=== PATIENT | female | born 1995 | race Two or more races ===

== ENCOUNTER 2018-01-08 03:24 | Inpatient (IN) | payer SELFPAY ==
[2018-01-08] MEDS ORDERED: IV RINGERS,LACTATED 1000ML 1,000 ML IV (03:56)
[2018-01-08] MEDS ORDERED: TERBUTALINE 1 MG/ML VIAL. SQ (04:00)
[2018-01-08] MEDS ORDERED: 0.9 % SODIUM CHLORIDE 10 ML DISP.SYRIN. IV ×2 (04:00→04:30)
[2018-01-08] MEDS ORDERED: LIDOCAINE 1% PF 30 ML VIAL. INJ (04:00)
[2018-01-08] MEDS ORDERED: IBUPROFEN 800 MG TABLET. PO (04:00)
[2018-01-08 04:05] LABS: ADD MAN DIFF? NO
[2018-01-08 04:09] LABS: BASO % 0 % (0-3); EOS % 1 % (0-3); HEMATOCRIT 37.6 % (36.0-47.0); HEMOGLOBIN 13.1 g/dL (12.0-15.5); LYMPH # 3.8 x10^3/uL (1.0-4.8); LYMPH % 42 % (24-48); MEAN CORPUSCULAR HEMOGLOBIN 30 pg (25-35); MEAN CORPUSCULAR HGB CONC 35 g/dL (31-37); MEAN CORPUSCULAR VOLUME 87 fL (79-100); MONO # 0.5 x10^3/uL (0.0-1.1); MONO % 6 % (0-9); NEUT # 4.6 x10^3uL (1.8-7.7); NEUT % 51 % (31-73); PLATELET COUNT 266 x10^3/uL (140-400); RED BLOOD COUNT 4.33 x10^6/uL (3.50-5.40); RED CELL DISTRIBUTION WIDTH 15.2 % (11.5-14.5)
[2018-01-08] MEDS ORDERED: PHENYLEPH/MINERAL OIL/PETROLAT RECTAL OINTMENT 28GM TUBE. RC (04:30)
[2018-01-08] MEDS ORDERED: oxyCODONE/APAP 5/325 1 TAB TABLET PO (04:30)
[2018-01-08] MEDS ORDERED: OXYTOCIN 30 UNIT/500 ML PREMIX 500 ML IV (04:30)
[2018-01-08] MEDS ORDERED: SIMETHICONE 80 MG TAB.CHEW PO (04:30)
[2018-01-08] MEDS ORDERED: MAG HYDROX/ALUMINUM HYD/SIMETH 30 ML ORAL.SUSP PO (04:30)
[2018-01-08] MEDS ORDERED: ACETAMINOPHEN 325 MG TABLET. PO (04:30)
[2018-01-08] MEDS ORDERED: HYDROCORTISONE 1% TOPICAL OINTMENT 30GM TUBE. TP (04:30)
[2018-01-08] MEDS ORDERED: diphenhydrAMINE HCL 25 MG CAPSULE PO (04:30)
[2018-01-08] MEDS ORDERED: BENZOCAINE 20% TOPICAL AEROSOL SPRAY 57GM CAN. TP (04:30)
[2018-01-08] MEDS ORDERED: ZOLPIDEM 5 MG TABLET. PO (04:30)
[2018-01-08] MEDS ORDERED: MMR per PROTOCOL. MC (04:30)
[2018-01-08] MEDS ORDERED: MAGNESIUM HYDROXIDE 2,400 MG/30 ML ORAL.SUSP. PO (04:30)
[2018-01-08] MEDS: IV RINGERS,LACTATED 1000ML 1,000 ML IV (05:46)
[2018-01-08] MEDS: OXYTOCIN 30 UNIT/500 ML PREMIX 500 ML IV (05:48)
[2018-01-08] MEDS: DOCUSATE SODIUM 100 MG CAPSULE. PO (10:17)
[2018-01-08] MEDS: IBUPROFEN 600 MG TABLET. PO ×2 (10:18→22:07)
[2018-01-09 05:46] LABS: HEMATOCRIT 31.4 % (36.0-47.0)
[2018-01-09 07:38] LABS: RPR Non Reactive (Non Reactive)
[2018-01-09] MEDS ORDERED: FERROUS SULFATE 325 MG TABLET. PO (08:00)
[2018-01-09] MEDS: DOCUSATE SODIUM 100 MG CAPSULE. PO ×2 (09:07→17:41)
[2018-01-09] MEDS: IBUPROFEN 600 MG TABLET. PO ×3 (09:07→17:41)
[2018-01-10] MEDS: IBUPROFEN 600 MG TABLET. PO ×2 (08:43)
[2018-01-10] MEDS: DOCUSATE SODIUM 100 MG CAPSULE. PO (08:43)
[2018-01-10] MEDS: DIPHTH,PERTUSS(ACELL),TET TOX 0.5 ML DISP.SYRIN. VAX IM (08:46)
== END 2018-01-10 13:30 | disposition home or self-care (01) | DRG 775 ==
LOC: 3 SO LND 03:24 → 3 NORTH 09:00
PROC: 10E0XZZ Delivery of Products of Conception, External Approach (ICD-10-PCS; principal; 2018-01-08)
DX: O62.3 Precipitate labor (principal); Z37.0 Single live birth; Z3A.37 37 weeks gestation of pregnancy
CPT/HCPCS: 36415; 85014; 85025; 86593; 86850; 86900; 86901; 90715; 99285-25; G0379; J2590; J7120

== ENCOUNTER 2020-01-12 18:03 | Emergency (ER) | payer SELFPAY ==
[~2020-01-12] VITALS: Ht 152.4 cm; Wt 68.0 kg
[2020-01-12] MEDS ORDERED: IV NORMAL SALINE 1000ML BAG 1,000 ML IV SCH (18:22)
[2020-01-12 18:30] LABS: CLARITY,URINE CLOUDY
[2020-01-12] MEDS ORDERED: ONDANSETRON PF 4 MG/2 ML VIAL. IVP ONE (18:30)
[2020-01-12] MEDS ORDERED: HYDROmorphone 2 MG/ML VIAL IV/SQ PRN (18:30)
[2020-01-12 18:33] LABS: BASO # 0.1 x10^3/uL (0.0-0.2); BASO % 1 % (0-3); EOS # 0.1 x10^3/uL (0.0-0.7); EOS % 1 % (0-3); HEMATOCRIT 39.4 % (36.0-47.0); HEMOGLOBIN 13.8 g/dL (12.0-15.5); LYMPH # 4.1 x10^3/uL (1.0-4.8); LYMPH % 42 % (24-48); MEAN CORPUSCULAR HEMOGLOBIN 31 pg (25-35); MEAN CORPUSCULAR HGB CONC 35 g/dL (31-37); MEAN CORPUSCULAR VOLUME 89 fL (79-100); MONO # 0.5 x10^3/uL (0.0-1.1); MONO % 5 % (0-9); NEUT # 5.2 x10^3/uL (1.8-7.7); NEUT % 52 % (31-73); PLATELET COUNT 262 x10^3/uL (140-400); RED BLOOD COUNT 4.41 x10^6/uL (3.50-5.40); RED CELL DISTRIBUTION WIDTH 13.9 % (11.5-14.5); WHITE BLOOD COUNT 9.9 x10^3/uL (4.0-11.0)
[2020-01-12 18:40] LABS: CALCIUM 8.9 mg/dL (8.5-10.1); CREATININE 0.7 mg/dL (0.6-1.0); GFR 101.1; POTASSIUM 3.6 mmol/L (3.5-5.1)
--- NOTE | 2020-01-12 18:41 | PHYS DOC ---
Past Medical History Past Medical History: No Pertinent History Past Surgical History: No Surgical History Smoking Status: Current Every Day Smoker Alcohol Use: Rarely General Adult EDM: Chief Complaint: FLANK PAIN HPI: HPI: Patient is a 24 year old female who presents with complaint of right flank pain that started earlier this morning. Patient states that she has noticed hematuria when she urinates but has no painful urination. She states that she finished her menstrual cycle about a week ago. Patient does not believe that she is . She denies having had any nausea or vomiting. She also denies any diarrhea. She rates pain as quite severe, similar to labor pains.[] Review of Systems: Review of Systems: Constitutional: Denies fever or chills. [] Respiratory: Denies cough or shortness of breath. [] Cardiovascular: Denies chest pain or edema. [] GI: Complains of right flank pain without vomiting or diarrhea. [] : Denies dysuria. Positive hematuria [] Musculoskeletal: Positive right-sided back pain. [] Neurologic: Denies headache, focal weakness or sensory changes. [] A full 10 point review of systems has been reviewed and is otherwise negative except as noted on history of present illness. Heart Score: Risk Factors: Risk Factors: DM, Current or recent (<one month) smoker, HTN, HLP, family history of CAD, obesity. Risk Scores: Score 0 - 3: 2.5% MACE over next 6 weeks - Discharge Home Score 4 - 6: 20.3% MACE over next 6 weeks - Admit for Clinical Observation Score 7 - 10: 72.7% MACE over next 6 weeks - Early Invasive Strategies Current Medications: Current Medications Medications (Trade) Dose Ordered Sig/Moisés Start Time Stop Time Status Last Admin Dose Admin Hydromorphone HCl (Dilaudid) 0.5 mg PRN Q15MIN PRN 01/12/20 18:30 01/13/20 18:29 Ondansetron HCl (Zofran) 4 mg 1X ONCE 01/12/20 18:30 01/12/20 18:31 DC Sodium Chloride 1,000 ml @ 1,000 mls/hr Q1H 01/12/20 18:22 01/12/20 19:21 Allergies: Allergies: Allergies Coded Allergies Type Severity Reaction Last Updated Verified No Known Drug Allergies 06/26/14 No Physical Exam: PE: Constitutional: Well developed, well nourished, no acute distress, non-toxic appearance. [] HENT: Normocephalic, atraumatic, bilateral external ears normal, oropharynx moist, no oral exudates, nose normal. [] Eyes: PERRLA, EOMI, conjunctiva normal, no discharge. [] Neck: Normal range of motion, no tenderness, supple, no stridor. [] Cardiovascular: Regular rate and rhythm[] Lungs & Thorax: Bilateral breath sounds clear to auscultation [] Abdomen: Bowel sounds normal, soft, no tenderness. [] Skin: Warm, dry, no erythema, no rash. [] Extremities: No tenderness, no cyanosis, no clubbing, ROM intact, no edema. [] Neurologic: Alert and oriented X 3, no focal deficits noted. [] Current Patient Data: Labs: Laboratory Tests Test 01/12/20 18:20 White Blood Count 9.9 x10^3/uL (4.0-11.0) Red Blood Count 4.41 x10^6/uL (3.50-5.40) Hemoglobin 13.8 g/dL (12.0-15.5) Hematocrit 39.4 % (36.0-47.0) Mean Corpuscular Volume 89 fL (79-100) Mean Corpuscular Hemoglobin 31 pg (25-35) Mean Corpuscular Hemoglobin Concent 35 g/dL (31-37) Red Cell Distribution Width 13.9 % (11.5-14.5) Platelet Count 262 x10^3/uL (140-400) Neutrophils (%) (Auto) 52 % (31-73) Lymphocytes (%) (Auto) 42 % (24-48) Monocytes (%) (Auto) 5 % (0-9) Eosinophils (%) (Auto) 1 % (0-3) Basophils (%) (Auto) 1 % (0-3) Neutrophils # (Auto) 5.2 x10^3/uL (1.8-7.7) Lymphocytes # (Auto) 4.1 x10^3/uL (1.0-4.8) Monocytes # (Auto) 0.5 x10^3/uL (0.0-1.1) Eosinophils # (Auto) 0.1 x10^3/uL (0.0-0.7) Basophils # (Auto) 0.1 x10^3/uL (0.0-0.2) Laboratory Tests 01/12/20 18:20 Vital Signs: Vital Signs Date Time Temp Pulse Resp B/P (MAP) Pulse Ox O2 Delivery O2 Flow Rate FiO2 01/12/20 18:18 98.3 95 18 139/89 (106) 100 Room Air 98.3 EKG: EKG: [] Radiology/Procedures: Radiology/Procedures: [] Impression: PROCEDURE: OB <14 WKS W/TV Obstetrical ultrasound including transvaginal scanning 01/12/2020. Reason for exam: Bleeding with . Initial scanning was done transabdominally. This shows a normal size uterus with a fluid-filled structure suggested in the endometrial region. Evaluation was somewhat limited by poor bladder distention. Neither ovary could be seen. There is no apparent adnexal mass or free fluid. Transvaginal scanning was performed to better visualize the intrauterine structures. By transvaginal scanning, the uterus is shown to be retroverted but normal in size and shape. There is a fluid-filled region apparently within the endometrial lining. This is elongated without visible gestational sac. Mean sac diameter is approximately 1.71 cm, corresponding to gestational age of 6 weeks 4 days, although sac configuration is not normal, appearing more elongated than usual. There is heterogeneous echotexture in the adjacent tissues possibly indicating hemorrhage. There is suggestion of a small amount of debris internally. No adnexal mass or free fluid is seen. IMPRESSION: There is a fluid-filled structure likely representing a gestational sac in the uterus, although the shape is not typical, and no internal structures are seen. There is some adjacent hemorrhage. Findings are nonspecific. They could indicate incomplete . There are no findings suggesting ectopic at this time. Follow-up serial serum beta hCG will be useful. Electronically signed by: Santiago Bell Jr., MD (01/12/2020 8:38 PM) [id number] Course & Med Decision Making: Course & Med Decision Making Pertinent Labs and Imaging studies reviewed. (See chart for details) [] Dragon Disclaimer: Dragon Disclaimer: This electronic medical record was generated, in whole or in part, using a voice recognition dictation system. Departure Departure Impression: Primary Impression: Threatened in early Disposition: 01 HOME, SELF-CARE Condition: STABLE Referrals: UNKNOWN PCP NAME (PCP) SANTIAGO HOLLY Jr, MD Patient Instructions: Incomplete Miscarriage, Threatened Miscarriage Scripts Acetaminophen With Codeine (TYLENOL WITH CODEINE #3 TABLET) 1 Each Tablet 1 TAB PO PRN Q6HRS PRN for PAIN, #12 TAB Prov: MARGUERITE ESTRADA Jr. DO 01/12/20 Ondansetron (ONDANSETRON ODT) 4 Mg Tab.rapdis 1 TAB PO PRN Q6-8HRS PRN for NAUSEA, #15 TAB Prov: MARGUERITE ESTRADA Jr. DO 01/12/20 MARGUERITE ESTRADA Jr. DO January 12, 2020 18:41
[2020-01-12 18:43] LABS: COLOR,URINE RED; RBC,URINE TNTC /HPF (0-2)
[2020-01-12 18:44] LABS: PREG TEST PT QUAL POSITIVE (NEG)
[2020-01-12 18:46] LABS: ALBUMIN 4.1 g/dL (3.4-5.0); TOTAL BILIRUBIN 0.5 mg/dL (0.2-1.0); TOTAL PROTEIN 8.3 g/dL (6.4-8.2)
[2020-01-12 18:48] LABS: BACTERIA,URINE 0 /HPF (0-FEW); WBC,URINE OCC /HPF (0-4)
[2020-01-12 18:49] LABS: SQUAMOUS EPITHELIAL CELL,UR FEW /LPF
--- NOTE | 2020-01-12 20:40 | RAD ---
Obstetrical ultrasound including transvaginal scanning 01/12/2020. Reason for exam: Bleeding with . Initial scanning was done transabdominally. This shows a normal size uterus with a fluid-filled structure suggested in the endometrial region. Evaluation was somewhat limited by poor bladder distention. Neither ovary could be seen. There is no apparent adnexal mass or free fluid. Transvaginal scanning was performed to better visualize the intrauterine structures. By transvaginal scanning, the uterus is shown to be retroverted but normal in size and shape. There is a fluid-filled region apparently within the endometrial lining. This is elongated without visible gestational sac. Mean sac diameter is approximately 1.71 cm, corresponding to gestational age of 6 weeks 4 days, although sac configuration is not normal, appearing more elongated than usual. There is heterogeneous echotexture in the adjacent tissues possibly indicating hemorrhage. There is suggestion of a small amount of debris internally. No adnexal mass or free fluid is seen. IMPRESSION: There is a fluid-filled structure likely representing a gestational sac in the uterus, although the shape is not typical, and no internal structures are seen. There is some adjacent hemorrhage. Findings are nonspecific. They could indicate incomplete . There are no findings suggesting ectopic at this time. Follow-up serial serum beta hCG will be useful. Electronically signed by: Santiago Bell Jr., MD (01/12/2020 8:38 PM) [id number]
[2020-01-12] MEDS ORDERED: ACET-704 PO (20:49)
[2020-01-12] MEDS ORDERED: ONDA4TAB12 PO (20:49)
[2020-01-12 21:15] VITALS: BP 113/75
== END 2020-01-12 21:58 | disposition home or self-care (01) ==
LOC: ER 18:03
DX: O20.0 Threatened abortion (principal); R10.9 Unspecified abdominal pain; R31.9 Hematuria, unspecified; F17.200 Nicotine dependence, unspecified, uncomplicated; Z3A.01 Less than 8 weeks gestation of pregnancy
CPT/HCPCS: 36415; 76801; 76817; 80053; 81001; 83690; 84702; 84703; 85025; 96374; 96375; 99285; J1170; J2405; J7030

== ENCOUNTER 2020-01-13 22:42 | Emergency (ER) | payer SELFPAY ==
[~2020-01-13] VITALS: Ht 152.4 cm; Wt 68.2 kg
[~2020-01-13 22:42] MED LIST: ACET-704 PO; ONDA4TAB12 PO
[2020-01-13] MEDS ORDERED: IV NORMAL SALINE 1000ML BAG 1,000 ML IV ONE (23:15)
[2020-01-13 23:18] LABS: BASO % 0 % (0-3); EOS # 0.1 x10^3/uL (0.0-0.7); EOS % 1 % (0-3); HEMATOCRIT 37.5 % (36.0-47.0); HEMOGLOBIN 13.2 g/dL (12.0-15.5); LYMPH # 4.1 x10^3/uL (1.0-4.8); LYMPH % 42 % (24-48); MEAN CORPUSCULAR HEMOGLOBIN 31 pg (25-35); MEAN CORPUSCULAR HGB CONC 35 g/dL (31-37); MEAN CORPUSCULAR VOLUME 89 fL (79-100); MONO # 0.5 x10^3/uL (0.0-1.1); MONO % 5 % (0-9); NEUT # 4.9 x10^3/uL (1.8-7.7); NEUT % 51 % (31-73); PLATELET COUNT 249 x10^3/uL (140-400); RED CELL DISTRIBUTION WIDTH 13.8 % (11.5-14.5); WHITE BLOOD COUNT 9.7 x10^3/uL (4.0-11.0)
--- NOTE | 2020-01-13 23:18 | PHYS DOC ---
Past Medical History Past Medical History: No Pertinent History Past Surgical History: No Surgical History Smoking Status: Current Every Day Smoker Alcohol Use: Rarely Drug Use: None General Adult EDM: Chief Complaint: ABDOMINAL PAIN IN HPI: HPI: 24-year-old presents with report of progressive abdominal/pelvic discomfort and vaginal bleeding. Patient was seen yesterday for same and was found to be . Patient reports pain initially in right flank but now localized to lower abdomen and pelvis. Per [employer] review ultrasound obtained at that time noted a fluid-filled structure likely gestational sac within the uterus with adjacent hemorrhaging. There was no signs of ectopic at that time. Patient was thought to have threatened in early . Patient sent home with Tylenol No. 3 and Zofran ODT and was to follow with WELDING MACHINE OPERATOR/TENDER. Patient reports despite use of medications symptoms have worsened. Reports is currently passing "large clots ". Denies dizziness or lightheadedness. Denies fever or chills. Denies trauma. Review of Systems: Review of Systems: Constitutional: Denies fever or chills Eyes: Denies redness or eye pain HENT: Denies nasal congestion or sore throat Respiratory: Denies cough or shortness of breath Cardiovascular: Denies chest pain or palpitations GI: Reports lower abdominal/pelvic pain and nausea; denies vomiting /WELDING MACHINE OPERATOR/TENDER: Denies dysuria or hematuria; reports vaginal bleeding in Musculoskeletal: Denies back pain or joint pain Integument: Denies rash or skin lesions Neurologic: Denies headache, focal weakness or sensory changes Complete systems were reviewed and found to be within normal limits, except as documented in this note. Current Medications: Current Medications Medications (Trade) Dose Ordered Sig/Moisés Start Time Stop Time Status Last Admin Dose Admin Sodium Chloride 1,000 ml @ 1,000 mls/hr 1X ONCE 01/13/20 23:15 01/14/20 00:14 Allergies: Allergies: Allergies Coded Allergies Type Severity Reaction Last Updated Verified No Known Drug Allergies 06/26/14 No Physical Exam: PE: Constitutional: Well developed, well nourished, no acute distress, non-toxic appearance HENT: Normocephalic, atraumatic Eyes: Conjunctiva normal, no discharge Neck: Normal range of motion, no tenderness, supple Cardiovascular: Heart rate normal, regular rhythm Lungs & Thorax: Bilateral breath sounds clear to auscultation, no wheezing Abdomen: Soft, no tenderness, no guarding/rebound tenderness/distention Pelvic exam: Senior Case Manager RN, external genitalia normal, clot noted in vaginal vault, os open with some clot, no significant active bleeding noted, bilateral adnexal tenderness noted R>L. Skin: Warm, dry, no erythema, no rash Extremities: No tenderness, ROM intact, no edema Neurologic: Alert and oriented X 3, no focal deficits noted Psychologic: Affect normal, judgment normal EKG: EKG: [] Radiology/Procedures: Radiology/Procedures: PROCEDURE: OB <14 WKS W/TV OB <14 WKS W/TV Clinical Indication: Worsening pelvic pain, bleeding. Comparison: Obstetric ultrasound, prior day. TECHNIQUE: Real-time ultrasound imaging of the pelvis using transabdominal and transvaginal window is performed. Findings: Uterus measures 9.3 x 5.8 x 5.6 cm. Cervix length is approximately 4.2 cm. There is an elongated gestational sac. There are no internal contents. The gestational sac appears more elongated than on prior day's study and may be slightly smaller. The maternal ovaries are normal. No pelvic free fluid is identified. No evidence of an adnexal mass. IMPRESSION: Abnormal intrauterine gestational sac with no internal contents is redemonstrated. The sac appears more elongated and may be slightly smaller. Findings suggest failed first trimester . There are no findings suspicious for ectopic . Suggest serial quantitative beta hCG. Electronically signed by: Darin Coats MD (01/14/2020 12:22 AM) [id number] Course & Med Decision Making: Course & Med Decision Making Pertinent Labs and Imaging studies reviewed. (See chart for details) presents with progressive pelvic pain and vaginal bleeding. Denies dizziness or lightheadedness. Abdomen nonperitoneal. VS stable. Patient seen yesterday evening for same. US with concern for incomplete miscarriage. Pelvic exam performed. Chlamydia/Gonorrhea cultures pending. Empiric antibiotics provided. Wet mount without signs of infection. Labs obtained and posted to chart. [id number] ABO: O+ Repeat OB ultrasound with findings suggestive of 1st trimester miscarriage. NO clinical signs of ectopic . A copy of US results with current [facility] and blood type provided. Patient stable for discharge with outpatient follow-up with PCP/WELDING MACHINE OPERATOR/TENDER. WELDING MACHINE OPERATOR/TENDER referral provided. Discussed findings and plan with patient, who acknowledges understanding and agreement. Miguelito Disclaimer: Miguelito Disclaimer: This electronic medical record was generated, in whole or in part, using a voice recognition dictation system. Departure Departure Impression: Primary Impression: Spontaneous miscarriage Disposition: HOME, SELF-CARE Condition: STABLE Referrals: NO PCP (PCP) JULIO HOLLY Jr, MD Patient Instructions: Miscarriage, [id number] Additional Instructions: Please follow with your doctor or referred ORGANISATIONAL PSYCHOLOGIST in 3 days for repeat BHCG level. You may also take over the counter Ibuprofen for pain or discomfort. Scripts Hydrocodone/Apap 5-325 (NORCO 5-325 TABLET) 1 Each Tablet 0.5-1 TAB PO PRN Q6HRS PRN for PAIN, #8 TAB 0 Refills Prov: JOSE CARRIZALES DO 01/14/20 JOSE CARRIZALES DO January 13, 2020 23:18
[2020-01-13 23:28] LABS: PROTHROMBIN TIME PATIENT 12.5 SEC (11.7-14.0)
[2020-01-13 23:29] LABS: CREATININE 0.6 mg/dL (0.6-1.0); GFR 120.8; POTASSIUM 3.4 mmol/L (3.5-5.1)
[2020-01-13 23:35] LABS: ALBUMIN 3.8 g/dL (3.4-5.0); MAGNESIUM 1.7 mg/dL (1.8-2.4); TOTAL BILIRUBIN 0.5 mg/dL (0.2-1.0); TOTAL PROTEIN 7.5 g/dL (6.4-8.2)
--- NOTE | 2020-01-14 00:25 | RAD ---
OB <14 WKS W/TV Clinical Indication: Worsening pelvic pain, bleeding. Comparison: Obstetric ultrasound, prior day. TECHNIQUE: Real-time ultrasound imaging of the pelvis using transabdominal and transvaginal window is performed. Findings: Uterus measures 9.3 x 5.8 x 5.6 cm. Cervix length is approximately 4.2 cm. There is an elongated gestational sac. There are no internal contents. The gestational sac appears more elongated than on prior day's study and may be slightly smaller. The maternal ovaries are normal. No pelvic free fluid is identified. No evidence of an adnexal mass. IMPRESSION: Abnormal intrauterine gestational sac with no internal contents is redemonstrated. The sac appears more elongated and may be slightly smaller. Findings suggest failed first trimester . There are no findings suspicious for ectopic . Suggest serial quantitative beta hCG. Electronically signed by: Darin Coats MD (01/14/2020 12:22 AM) [id number]
[2020-01-14] MEDS ORDERED: HYDR-3164 PO (00:32)
[2020-01-14] MEDS ORDERED: AZITHROMYCIN 250 MG TABLET. PO ONE (00:45)
[2020-01-14] MEDS ORDERED: KETOROLAC 15 MG/ML VIAL. IVP ONE (00:45)
[2020-01-14] MEDS ORDERED: cefTRIAXone IM 250 MG VIAL IM ONE (00:45)
[2020-01-14 01:10] VITALS: BP 116/64
[2020-01-15 17:09] LABS: GC PROBE Negative (Negative)
== END 2020-01-14 01:10 | disposition home or self-care (01) ==
LOC: ER 22:42
DX: O03.9 Complete or unspecified spontaneous abortion without complication (principal); O99.331 Smoking (tobacco) complicating pregnancy, first trimester; Z3A.00 Weeks of gestation of pregnancy not specified
CPT/HCPCS: 36415; 76801; 76817; 80053; 83690; 83735; 84702; 85025; 85610; 85730; 87491; 87591; 96372; 96374; 99285; J0696; J1885; J7030; Q0111; 99284-25